=== PATIENT | male | born 1940 | race Two or more races ===

== ENCOUNTER 2024-08-24 01:23 | Emergency (ER) | payer MEDICARE, MEDICAID, SELFPAY ==
--- NOTE | 2024-08-24 01:58 | PD.EDRME ---
Rapid Medical Screening Exam RME Arrival date/time: 08/24/24 01:23 84 yo m present to ED for c/o of abd pain, nausea and vomiting I have greeted and performed a focused initial assessment of this patient. A comprehensive ED assessment and evaluation of the patient, analysis of all test results, and completion of the medical decision making process will be conducted by additional ED providers. Chief Complaint: Abdominal Pain Time Seen by Provider: 08/24/24 02:18 Vital signs: Vital Signs Temperature 98.2 F 08/24/24 02:01 Pulse Rate 73 08/24/24 02:01 Respiratory Rate 18 08/24/24 02:01 Blood Pressure 155/79 H 08/24/24 02:01 Pulse Oximetry (%) 95 08/24/24 02:01
--- NOTE | 2024-08-24 01:59 | XR_ITS ---
Examination: CT abdomen with intravenous contrast CT pelvis with intravenous contrast 2-D coronal reconstructions 2-D sagittal reconstructions Date and time of exam:August 24, 2024 0442 hrs. Indications: Abdominal pain and swelling nausea vomiting beginning today. CTDI: vol (mGy) 8.04 DLP: (mGycm) 451 Technique: Multiple axial sections of the abdomen and pelvis have been obtained. 64 slice high-resolution scanner used. 3 mm axial sections have been obtained, post intravenous injection 60 cc Isovue-370 2-D sagittal, coronal reconstructions obtained. Low dose protocols were performed. One or more of the following dose reduction techniques were used; automated exposure control, adjustment of the mA and/or KV according to patient size, use of iterative reconstruction technique. Findings: Liver is mildly irregular in contour Suspicious for tiny gallstones Spleen is not enlarged No pancreatic mass No adrenal mass Moderate bilateral renal parenchymal scar formation Abdominal aortic calcification millimeters dilatation Moderate stool throughout the colon No obstruction No diverticulitis Urinary bladder wall minimal thickening Normal appendix Advanced disc narrowing L4-L5 with grade 2 anterolisthesis Impression: Suspicious for primary hepatocellular disease Recommend gallbladder sonography to confirm small gallstones Moderate bilateral renal parenchymal scar formation Normal appendix No bowel obstruction or diverticulitis
--- NOTE | 2024-08-24 02:00 | EKG_ITS ---
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: : 1940 Requested By: Vinicius Campoverde Order Number: [id number] Reading MD: Vinicius Campoverde Measurements Intervals Lutz Rate: 74 P: 53 AL: 235 QRS: -34 QRSD: 146 T: 50 QT: 448 QTc: 500 Interpretive Statements SINUS RHYTHM WITH FIRST DEGREE AV BLOCK LEFT AXIS DEVIATION [QRS AXIS < -30] RIGHT BUNDLE BRANCH BLOCK [120+ ms QRS DURATION, UPRIGHT V1, 40+ ms S IN I/aVL/V4/V5/V6] Compared to ECG 03/31/2024 12:19:52 Left-axis deviation now present Right bundle-branch block now present Sinus bradycardia no longer present Incomplete right bundle-branch block no longer present /store/S0/[id number]/ecg/[id number].pdf
[2024-08-24 02:01] VITALS: BP 155/79; PULSE 73; RESP 18; TEMP 36.8; O2SAT 95
--- NOTE | 2024-08-24 02:14 | PD.EDABDPN ---
ED Abdominal Pain RME/HPI General Chief Complaint: Abdominal Pain Stated complaint: ABDOMINAL PAIN Time seen by provider: 08/24/24 02:18 Arrival date/time: 08/24/24 01:23 Limitations: no limitations RME / HPI RME / HPI narrative: 08/24/24 01:23 84 yo m present to ED for c/o of abd pain, nausea and vomiting I have greeted and performed a focused initial assessment of this patient. A comprehensive ED assessment and evaluation of the patient, analysis of all test results, and completion of the medical decision making process will be conducted by additional ED providers. Dr. Leigh's Main ED Evaluation: 84yo male presents to the ED for a chief complaint of burning epigastric discomfort x 3-4 hours. No radiation or migration. Patient reports associated nausea and dizziness. Patient denies any fever, chills, vomiting, diarrhea, back pain, UTI symptoms or any other associated symptoms. Related Data Home Medications ?Medication ?Instructions ?Recorded ?Confirmed allopurinol 300 mg tablet 300 mg PO QDAY 08/13/23 08/13/23 ferrous sulfate 325 mg (65 mg 325 mg PO QDAY 08/13/23 08/13/23 iron) tablet (FeroSul) finerenone 10 mg tablet (Kerendia) 10 mg PO QDAY 08/13/23 08/13/23 insulin glargine 100 30 unit subcut QDAY 08/13/23 08/13/23 unit-lixisenatide 33 mcg/mL subcutaneous pen (Soliqua 100/33) lactulose 10 gram/15 mL oral 15 ml PO QDAY 08/13/23 08/13/23 solution (Enulose) omeprazole 40 mg capsule,delayed 40 mg PO QDAY 08/13/23 08/13/23 release Allergies Allergy/AdvReac Type Severity Reaction Status Date / Time No Known Allergies Allergy Verified 08/13/23 11:17 Review of Systems Review of Systems Systems Reviewed: All systems reviewed, normal except as documented Past Medical History Past Medical History NEUROLOGIC: Negative Neurological Disorders or Seizures CARDIAC: Positive Cardiac Disorders; Negative Congestive Heart Failure or Hypertension RESPIRATORY: Negative Chronic Obstructive Pulmonary Disease (COPD) or Asthma GASTROINTESTINAL: Positive Gastrointestinal Disorders and Gastrointestinal Bleed; Negative Hepatitis GENITOURINARY: Negative Genitourinary Disorders or Renal Disease MUSCULOSKELETAL: Positive Musculoskeletal Disorders (uses cane to walk) and Osteomyelitis (back) ENT: Positive Deafness ENDOCRINE: Positive Endocrine Disorders and Diabetes Mellitus Type 2; Negative Diabetes Mellitus Type 1 HEMATOLOGIC: Negative Blood Disorders or Sickle Cell Disease OTHER HISTORY: Negative Autoimmune Disease, Blood Transfusions, Blood Transfusion Reaction, Anesthesia Reactions, MRSA, Human Immunodeficiency Virus (HIV), Chicken Pox, Measles, Mumps, Rubella (Finnish Measles), Pertussis, Clostridium Difficile or Cancer Family History FAMILY HISTORY: Negative Family Cardiac Disorders Surgical History SURGICAL: Positive Angiogram Social History SMOKING STATUS: Never smoker ED Exam General Limitations: Present no limitations General appearance: Present alert and in no apparent distress Head Head exam: Present atraumatic Eye Eye exam: Present normal appearance, PERRL and EOMI ENT ENT exam: Present normal exam, normal oropharynx and mucous membranes moist Neck Neck exam: Present normal inspection, full ROM and trachea midline Chest Chest inspection: Present normal inspection and symmetric chest wall rise Respiratory Respiratory exam: Present normal lung sounds bilaterally Cardiovascular Cardiovascular exam: Present regular rate, normal rhythm and normal heart sounds Abdominal Exam Abdominal exam: Present soft and normal bowel sounds Extremities Exam Extremities exam: Present normal inspection and full ROM Back Exam Back exam: Present normal inspection and full ROM Neurological Exam Neurological exam: Present alert, oriented X3 and CN II-XII intact Psychiatric Psychiatric exam: Present normal affect and normal mood Skin Skin exam: Present warm, dry, intact and normal color Course Course Course Narrative: CXR is ordered for determining the etiology of epigastric pain. Quality Measures none Orders Category Date Time Status CT Screening NOW Care 08/24/24 01:59 Active EKG (ED ONLY) *Do not use* NOW Care 08/24/24 02:[address] abdomen pelvis w con Stat Exams 08/24/24 01:59 Ordered CXRP [XR chest 1V portable] Stat Exams 08/24/24 05:03 Taken EKG (ED Only) Stat Exams 08/24/24 02:00 Draft BNP [B-Type Natriuretic Peptide] Stat Lab 08/24/24 02:27 Completed CBC Stat Lab 08/24/24 02:27 Completed CMP [Comprehensive Metabolic Panel] Stat Lab 08/24/24 02:27 Completed Lipase Stat Lab 08/24/24 02:27 Completed Troponin I Stat Lab 08/24/24 02:27 Completed Troponin I Stat Lab 08/24/24 05:32 Ordered UA [Urinalysis] Stat Lab 08/24/24 03:15 Completed Sodium Chloride 0.9% 500 ml [Ns] 500 ml Med 08/24/24 05:03 Discontinued IV 999 mls/hr Reevaluation(s) Reevaluation #1: Patient's heart rate is 73. He is completely pain free. Patient is pending CT abdomen pelvis and CXR at this time. Time: 05:29 Vital Signs Vital signs: Vital Signs Temperature 98.2 F 08/24/24 02:01 Pulse Rate 73 08/24/24 02:01 Respiratory Rate 18 08/24/24 02:01 Blood Pressure 155/79 H 08/24/24 02:01 Pulse Oximetry (%) 95 08/24/24 02:01 Abdominal Pain MDM Patient data External records reviewed:: [facility] previous records (Per chart review, patient was seen here on 09/05/22 for acute dehydration.) Clinical information provided by:: patient Social determinants that could affect healthcare access:: none Patient has the following chronic illnesses:: DM How is presenting disease/condition affected by chronic disease/condition?: uneffected by Evaluation data The following diagnostics were reviewed and interpreted by me:: lab results, radiology exam(s) (CT pending at signout.) and EKG tracing(s) Lab and/or radiology exams considered but not ordered:: none Interpretation Summary: WBC count is 10.7, Glucose is 182, Initial troponin is normal, BNP is normal, Lipase is normal, according to my interpretation. EKG done at 0209, NSR, rate of 74, first degree AV block, RBBB, similar to previous EKG done in 03/2024, no STEMI, QTc: 500, according to my interpretation. Medications / Prescriptions Medications or Prescriptions considered but not ordered:: none Medication administrations:: Medication Administration History Discontinued Medications Sodium Chloride (Ns) 500 mls @ 999 mls/hr IV .Q31M ONE Stop: 08/24/24 05:33 Last Admin: 08/24/24 05:05 Dose: 999 mls/hr Documented By: JADE see above Consultations Consultation(s) initiated? (list below): No Diagnosis Differential diagnosis abdominal pain: constipation, pancreatitis and other (NSTEMI, gallstones, other biliary abnormalities, ileus, exacerbation of DM) Most likely diagnosis given after review of the tests above:: final dx pending at signout. Admission Indicated Admission indicated?: not indicated Admission Request Was there a request for admission?: No Disposition Plan Disposition Plan: other (specify) (Signed out to Dr. Stack pending CT abdomen pelvis, CXR, and repeat troponin.) Discharge Plan Prescriptions/Referrals Prescriptions/Med Rec: No Action omeprazole 40 mg Capsule,Delayed Release(Dr/Ec) 40 mg PO QDAY ferrous sulfate [FeroSul] 325 mg (65 mg iron) Tablet 325 mg PO QDAY allopurinol 300 mg Tablet 300 mg PO QDAY lactulose [Enulose] 10 gram/15 mL Solution 15 ml PO QDAY Soliqua 100/33 100 unit-33 mcg/mL insulin pen 30 unit SUBCUT QDAY Kerendia 10 mg Tablet 10 mg PO QDAY Referrals: No Primary/Family,Physician [Primary Care Provider] - In 1 week Problem List Clinical Impression: Abdominal pain, epigastric Patient/Caregiver Discharge Instructions Print Language: Uruguayan
[2024-08-24 02:39] LABS: Basophils % (Auto) 0 % (0-2.5); Eosinophils # (Auto) 0.1 Thou/mm3 (0.0-0.5); Eosinophils % (Auto) 1 % (0-10); Hematocrit 45.4 % (41.0-53.0); Hemoglobin 16.1 g/dL (13.5-16.0); Immature Granulocytes % (Auto) 0 % (0-0); Immature Granulocytes Auto 0.04 Thou/mm3 (0.00-0.00); Lymphocytes # (Auto) 2.1 Thou/mm3 (1.0-4.8); Lymphocytes % (Auto) 20 % (10-50); Mean Corpuscular HGB Conc 35.5 g/dl (31.0-37.0); Mean Corpuscular Hemoglobin 31.4 pg (25.0-35.0); Mean Corpuscular Volume 89 fL (80-100); Monocytes # (Auto) 0.6 Thou/mm3 (0.0-0.8); Monocytes % (Auto) 6 % (0-12); Neutrophils # (Auto) 7.7 Thou/mm3 (1.8-7.7); Neutrophils % (Auto) 72 % (37-80); Nucleated Red Blood Cell % 0 /100 WBC (0); Platelet Count 203 Thou/mm3 (140-440); RDW Standard Deviation 42.4 fL (35.1-43.9); Red Blood Count 5.13 Miln/mm3 (4.50-5.90); White Blood Count 10.7 Thou/mm3 (3.8-10.6)
[2024-08-24 03:03] LABS: B-Type Natriuretic Peptide 35 pg/mL (0-100)
[2024-08-24 03:04] LABS: Alanine Aminotransferase 16 U/L (10-49); Albumin, Serum 4.4 gm/dL (3.4-4.8); Albumin/Globulin Ratio 1.4 (1.2-2.2); Alkaline Phosphatase 156 U/L (46-116); Anion Gap 8 (7-16); Aspartate Amino Transferase 22 U/L (0-34); BUN/Creatinine Ratio 18 Ratio (12-20); Bilirubin,Total 0.7 mg/dL (0.3-1.2); Blood Urea Nitrogen 16 mg/dL (9-23); Carbon Dioxide 29.8 mMol/L (20.0-31.0); Chloride 102 mMol/L (98-107); Creatinine (Component) 0.9 mg/dL (0.6-1.3); Globulin 3.2 gm/dL (2.3-3.5); Glucose 182 mg/dL (74-106); Lipase 41 U/L (12-53); Osmolality,Calculated 285 (275-295); Potassium 4.9 mMol/L (3.4-5.1); Sodium 140 mMol/L (136-145); Total Protein 7.6 gm/dL (5.7-8.2); Troponin I 0.041 ng/mL (0.0-0.045); eGFR > 60 See Note
[2024-08-24 03:33] LABS: Collection Type, Urine Voided
[2024-08-24 03:35] LABS: Bilirubin,Urine Negative (Negative); Blood,Urine Negative (Negative); Clarity,Urine Clear (Clear/Hazy); Color,Urine Yellow (Lt Yel-Yel); Glucose, Urine Trace (Negative); Ketones,Urine Negative (Negative); Leukocyte Esterase,Urine Negative (Negative); Nitrite,Urine Negative (Negative); PH,Urine 7.5 (5.0-7.0); Protein,Urine 1+ (Neg - Trace); RBC,Urine 4 /hpf (0-3); Specific Gravity,Urine 1.024 (1.001-1.035); Squamous Epithelial Cell,Urine 1 /hpf (0-5); WBC,Urine 1 /hpf (0-5)
[2024-08-24 04:34] VITALS: BP 169/89; PULSE 72; RESP 18; TEMP 36.8; O2SAT 97
[2024-08-24 04:47] VITALS: BMI 28.6
[2024-08-24 04:58] VITALS: BP 144/91; PULSE 130; RESP 16; O2SAT 95
--- NOTE | 2024-08-24 05:03 | XR_ITS ---
Examination: AP chest single view Technique one AP portable upright chest single view Exam date and time: August 24, 2024 at 0427 hrs. Indications: Onset chest pain today Findings: Mild enlargement left ventricle No lobar pneumonia or pulmonary edema Intact osseous structures Impression: No pneumonia or pulmonary edema
[2024-08-24] MEDS: SODIUM CHLORIDE 0.9% 500 ML 500 ML 999 ML IV (05:05)
[2024-08-24 06:00] VITALS: BP 168/71; PULSE 62; RESP 16; TEMP 36.7; O2SAT 96
[2024-08-24 06:27] LABS: Troponin I 0.027 ng/mL (0.0-0.045)
--- NOTE | 2024-08-24 07:40 | PC.NURSE ---
Pt GCS 15, reports he is feeling better, provided warm blanket. Denies any pain or discomfort at this time, will continue w/POC.
--- NOTE | 2024-08-24 07:59 | PD.EDADDENDU ---
Emergency Room Addendum <Nasra Whyte - Last Filed: 08/24/24 08:26> Addendum Narrative: 0600: Care assumed from , the previous shift emergency physician. Past medical, surgical, social and family history reviewed. Vitals and home medications reviewed. I will assume the care of the patient at this time, pending CT abdomen/pelvis and repeat troponin. Please refer to the emergency department record for history and examination from initial visit.? 0820: Patient states his pain has improved this morning. Pain initially was located all throughout abdomen described as feeling tight and making it hard for him to breathe. RADIOLOGY Ordering Physician: Vinicius Chopra PA-C Date of Service: 08/24/24 Procedure(s): CT abdomen pelvis w con Accession Number(s): [id number] cc: Parth Oneill MD; NO PRIMARY/FAMILY,PHYSICIAN; Vinicius Chopra PA-C~ Examination: CT abdomen with intravenous contrast CT pelvis with intravenous contrast 2-D coronal reconstructions 2-D sagittal reconstructions Date and time of exam:August 24, 2024 0442 hrs. Indications: Abdominal pain and swelling nausea vomiting beginning today. CTDI: vol (mGy) 8.04 DLP: (mGycm) 451 Technique: Multiple axial sections of the abdomen and pelvis have been obtained. 64 slice high-resolution scanner used. 3 mm axial sections have been obtained, post intravenous injection 60 cc Isovue-370 2-D sagittal, coronal reconstructions obtained. Low dose protocols were performed. One or more of the following dose reduction techniques were used; automated exposure control, adjustment of the mA and/or KV according to patient size, use of iterative reconstruction technique. Findings: Liver is mildly irregular in contour Suspicious for tiny gallstones Spleen is not enlarged No pancreatic mass No adrenal mass Moderate bilateral renal parenchymal scar formation Abdominal aortic calcification millimeters dilatation Moderate stool throughout the colon No obstruction No diverticulitis Urinary bladder wall minimal thickening Normal appendix Advanced disc narrowing L4-L5 with grade 2 anterolisthesis Impression: Suspicious for primary hepatocellular disease Recommend gallbladder sonography to confirm small gallstones Moderate bilateral renal parenchymal scar formation Normal appendix No bowel obstruction or diverticulitis Dictated By: Parth Oneill MD Signed By: <Electronically signed by Parth Oneill MD in [place]> 08/24/24 0740 <Krunal Stack MD - Last Filed: 08/24/24 08:28> Addendum Narrative: 0600: Care assumed from , the previous shift emergency physician. Past medical, surgical, social and family history reviewed. Vitals and home medications reviewed. I will assume the care of the patient at this time, pending CT abdomen/pelvis and repeat troponin. Please refer to the emergency department record for history and examination from initial visit.? Patient was reevaluated 0815 hrs. and he is complaining of no abdominal pain at this time states is totally resolved. Reexamination of his abdomen shows it to be protuberant but nontender there is no pain there is no guarding. He is smiling states he is ready to go home. We discussed the CT result below which said he might have some small gallstones and lots of poop. We told him and his son that he may have recurring bouts of pain if his gallstones are the source of the pain that happened earlier and/or drink increased water and talk to About constipation as there was increased stool in the colon. Either way he is got a benign abdomen there is no surgical issue and the CT is essentially negative. He knows to return if he is getting worse. 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 0820: Patient states his pain has improved this morning. Pain initially was located all throughout abdomen described as feeling tight and making it hard for him to breathe. RADIOLOGY Ordering Physician: Vinicius Chopra PA-C Date of Service: 08/24/24 Procedure(s): CT abdomen pelvis w con Accession Number(s): [id number] cc: Parth Oneill MD; NO PRIMARY/FAMILY,PHYSICIAN; Vinicius Chopra PA-C~ Examination: CT abdomen with intravenous contrast CT pelvis with intravenous contrast 2-D coronal reconstructions 2-D sagittal reconstructions Date and time of exam:August 24, 2024 0442 hrs. Indications: Abdominal pain and swelling nausea vomiting beginning today. CTDI: vol (mGy) 8.04 DLP: (mGycm) 451 Technique: Multiple axial sections of the abdomen and pelvis have been obtained. 64 slice high-resolution scanner used. 3 mm axial sections have been obtained, post intravenous injection 60 cc Isovue-370 2-D sagittal, coronal reconstructions obtained. Low dose protocols were performed. One or more of the following dose reduction techniques were used; automated exposure control, adjustment of the mA and/or KV according to patient size, use of iterative reconstruction technique. Findings: Liver is mildly irregular in contour Suspicious for tiny gallstones Spleen is not enlarged No pancreatic mass No adrenal mass Moderate bilateral renal parenchymal scar formation Abdominal aortic calcification millimeters dilatation Moderate stool throughout the colon No obstruction No diverticulitis Urinary bladder wall minimal thickening Normal appendix Advanced disc narrowing L4-L5 with grade 2 anterolisthesis Impression: Suspicious for primary hepatocellular disease Recommend gallbladder sonography to confirm small gallstones Moderate bilateral renal parenchymal scar formation Normal appendix No bowel obstruction or diverticulitis Dictated By: Parth Oneill MD Signed By: <Electronically signed by Parth Oneill MD in [place]> 08/24/24 0740
[2024-08-24 08:47] VITALS: BP 152/77; PULSE 88; RESP 16; TEMP 36.7; O2SAT 99
== END 2024-08-24 08:47 | disposition home or self-care (01) ==
PROVIDERS: Emergency Medicine; Physician Assistant; Emergency Provider Emergency Medicine
DX: R10.13 Epigastric pain (principal)
CPT/HCPCS: 36415; 71045; 74177; 80053; 81001; 83690; 83880; 84484; 85025; 93005; 96360; 99285; A4649; J7040; Q9967

== ENCOUNTER → 2024-08-24 | Outpatient (CLI) | payer MEDICARE, MEDICAID, SELFPAY ==
--- NOTE | 2024-08-24 11:57 | XR_ITS ---
Examination: Abdomen sonogram, complete Date and time of exam: August 24, 2024 1255 hrs. Indications: Abdominal pain and distention nausea vomiting today. Technique: Multiple real-time grayscale transabdominal sonographic images of the abdomen have been obtained. Findings: No gallstones identified Gallbladder wall 0.3 cm no edema Common bile duct 0.4 cm Pancreatic head 3.0 cm Aorta not enlarged Liver 11.8 cm fatty infiltration no focal liver lesions Normal hepatopedal portal venous flow Patent IVC Right kidney 10.4 x 6.8 x 6.1 cm cortex 1.6 cm Left kidney 9.2 x 6.1 x 1.8 cm cortex 1.3 cm Moderate renal parenchymal scar formation Spleen 9.4 cm Impression: Normal gallbladder Moderate bilateral Indication
== END | disposition home or self-care (01) ==
PROVIDERS: PCP Family Medicine; Referring Provider Family Medicine; Visit Provider Family Medicine
DX: R10.9 Unspecified abdominal pain (principal)
CPT/HCPCS: 76700

== ENCOUNTER → 2024-08-28 | Outpatient (CLI) | payer MEDICARE, MEDICAID, SELFPAY ==
--- NOTE | 2024-08-28 07:00 | XR_ITS ---
Examination: MRI lumbar spine without contrast Date and time of exam: August 28, 2024 at 0658 hrs. Indications: Lower back pain radiating down both legs beginning 4 days ago, lumbar spine surgery 2019 Technique: Multiple MRI axial and sagittal sections lumbar spine. Sagittal T2-weighted images, TR 3500, TE 118 T1 weighted transverse sections, TR 688 T8.5, T2-weighted sagittal sections T1 weighted sagittal sections TR 621, TE 30 T2 axial sections, TR 4, 190, TE 84. Findings: Grade 2 anterolisthesis L4 on L5 with fusion this level. No vertebral body fracture Marrow signal vertebral bodies L5-S1 no disc protrusion L4-L5 grade 2 anterolisthesis produces moderate bilateral L4 ganglionic compression L3-L4 no disc protrusion L2-L3 no disc protrusion L1-L2 no disc protrusion Impression: Grade 2 anterolisthesis L4 on L5 produces moderate bilateral L4 ganglionic compression
== END | disposition home or self-care (01) ==
LOC: SMRI 06:37
PROVIDERS: Referring Provider Family Medicine; Visit Provider Family Medicine
DX: G95.20 Unspecified cord compression (principal)
CPT/HCPCS: 72148

== ENCOUNTER 2025-02-21 12:34 | Emergency (ER) | payer MEDICARE, MEDICAID, SELFPAY ==
[2025-02-21 12:54] VITALS: BP 106/63; PULSE 58; RESP 18; TEMP 37.1; O2SAT 95; BMI 26.2
--- NOTE | 2025-02-21 13:00 | XR_ITS ---
Examination: CT abdomen and pelvis without contrast. Coronal 3-D reconstructions. Sagittal 2-D reconstructions. Date and time of exam:February 21, 2025 1440 hours INDICATIONS: Lower abdominal pain with nausea beginning today COMPARISON: August 24, 2024 CTDI: vol (mGy): 7.09 DLP: (mGycm): 397 Technique: Axial images of the abdomen have been obtained, 3 mm slice thickness Intravenous contrast material has not been administered. Low dose protocols were performed. One or more of the following dose reduction techniques were used; automated exposure control, adjustment of the mA and/or KV according to patient size, use of iterative reconstruction technique. Findings: Mild enlargement cardiac contour Liver irregular in contour No gallstones Spleen not enlarged No pancreatic or adrenal mass No renal or ureteral calculi, no hydronephrosis No bowel obstruction Normal appendix No diverticulitis Normal seminal vesicles Transverse prostate dimension 3.5 cm Minimal urinary bladder wall thickening Severe osteopenia, grade 2 anterolisthesis L4 on L5 with advanced degenerative disc disease at this level IMPRESSION: Primary hepatocellular disease No renal or ureteral calculi, no hydronephrosis Normal appendix No bowel obstruction diverticulitis or free air
--- NOTE | 2025-02-21 13:00 | PD.EDRME ---
Rapid Medical Screening Exam RME Arrival date/time: 02/21/25 12:34 84-year-old male with no known medical history presents to the emergency room with a chief complaint of abdominal pain, and abdominal distention x 2 days I have greeted and performed a focused initial assessment of this patient. A comprehensive ED assessment and evaluation of the patient, analysis of all test results, and completion of the medical decision making process will be conducted by additional ED providers. Chief Complaint: Abdominal Pain Vital signs: Vital Signs Temperature 98.8 F 02/21/25 12:54 Pulse Rate 58 L 02/21/25 12:54 Respiratory Rate 18 02/21/25 12:54 Blood Pressure 106/63 02/21/25 12:54 Pulse Oximetry (%) 95 02/21/25 12:54 Oxygen Delivery Method Room Air 02/21/25 12:54 Vital signs reviewed by provider: Yes
[2025-02-21 13:20] LABS: Basophils # (Auto) 0.0 Thou/mm3 (0.0-0.2); Basophils % (Auto) 0 % (0-2.5); Eosinophils # (Auto) 0.2 Thou/mm3 (0.0-0.5); Eosinophils % (Auto) 3 % (0-10); Hematocrit 44.2 % (41.0-53.0); Hemoglobin 15.3 g/dL (13.5-16.0); Immature Granulocytes Auto 0.02 Thou/mm3 (0.00-0.00); Lymphocytes # (Auto) 2.2 Thou/mm3 (1.0-4.8); Lymphocytes % (Auto) 25 % (10-50); Mean Corpuscular HGB Conc 34.6 g/dl (31.0-37.0); Mean Corpuscular Hemoglobin 31.6 pg (25.0-35.0); Mean Corpuscular Volume 91 fL (80-100); Monocytes # (Auto) 0.6 Thou/mm3 (0.0-0.8); Monocytes % (Auto) 7 % (0-12); Neutrophils # (Auto) 5.9 Thou/mm3 (1.8-7.7); Neutrophils % (Auto) 65 % (37-80); Nucleated Red Blood Cell # 0.00 Thou/mm3 (0.00-0.00); Nucleated Red Blood Cell % 0 /100 WBC (0); Platelet Count 167 Thou/mm3 (140-440); RDW Standard Deviation 41.0 fL (35.1-43.9); Red Blood Count 4.84 Miln/mm3 (4.50-5.90); White Blood Count 9.0 Thou/mm3 (3.8-10.6)
[2025-02-21 13:32] LABS: Collection Type, Urine Clean Catch
[2025-02-21 13:39] LABS: Alanine Aminotransferase 13 U/L (10-49); Albumin, Serum 4.0 gm/dL (3.4-4.8); Albumin/Globulin Ratio 1.5 (1.2-2.2); Alkaline Phosphatase 139 U/L (46-116); Anion Gap 11 (7-16); Aspartate Amino Transferase 24 U/L (0-34); BUN/Creatinine Ratio 12 Ratio (12-20); Bilirubin,Total 0.8 mg/dL (0.3-1.2); Blood Urea Nitrogen 14 mg/dL (9-23); Calcium 9.4 mg/dL (8.3-10.6); Calcium (Corrected) 9.4 mg/dL (8.5-10.1); Carbon Dioxide 23.3 mMol/L (20.0-31.0); Chloride 104 mMol/L (98-107); Creatinine (Component) 1.2 mg/dL (0.6-1.3); Estimated Creatinine Clearance 41.4 mL/min (>60); Globulin 2.7 gm/dL (2.3-3.5); Glucose 211 mg/dL (74-106); Lipase 41 U/L (12-53); Osmolality,Calculated 282 (275-295); Potassium 5.1 mMol/L (3.4-5.1); Sodium 138 mMol/L (136-145); Total Protein 6.7 gm/dL (5.7-8.2); eGFR 60 See Note
[2025-02-21 13:43] LABS: Bilirubin,Urine Negative (Negative); Blood,Urine Negative (Negative); Clarity,Urine Clear (Clear/Hazy); Color,Urine Yellow (Lt Yel-Yel); Glucose, Urine Negative (Negative); Ketones,Urine Negative (Negative); Leukocyte Esterase,Urine Negative (Negative); Nitrite,Urine Negative (Negative); PH,Urine 6.0 (5.0-7.0); Protein,Urine Negative (Neg - Trace); RBC,Urine 3 /hpf (0-3); Specific Gravity,Urine 1.016 (1.001-1.035); Squamous Epithelial Cell,Urine 2 /hpf (0-5); Urobilinogen,Urine Negative mg/dL (0.0-1.0); WBC,Urine 1 /hpf (0-5)
--- NOTE | 2025-02-21 14:10 | PD.EDADULT ---
ED General RME/HPI General Chief complaint: Abdominal Pain Stated complaint: ABD PAIN Time Seen by Provider: 02/21/25 13:01 Arrival date/time: 02/21/25 12:34 CC: Abdominal pain HPI onset at 3:00 this morning, with nausea no vomiting or diarrhea. Family member state he has a history of constipation patient denies any chest pain shortness of breath fever chills. RME / HPI RME / HPI narrative: 02/21/25 12:34 84-year-old male with no known medical history presents to the emergency room with a chief complaint of abdominal pain, and abdominal distention x 2 days I have greeted and performed a focused initial assessment of this patient. A comprehensive ED assessment and evaluation of the patient, analysis of all test results, and completion of the medical decision making process will be conducted by additional ED providers. Related Data Home Medications ?Medication ?Instructions ?Recorded ?Confirmed allopurinol 300 mg tablet 300 mg PO QDAY 08/13/23 08/13/23 ferrous sulfate 325 mg (65 mg 325 mg PO QDAY 08/13/23 08/13/23 iron) tablet (FeroSul) finerenone 10 mg tablet (Kerendia) 10 mg PO QDAY 08/13/23 08/13/23 insulin glargine 100 30 unit subcut QDAY 08/13/23 08/13/23 unit-lixisenatide 33 mcg/mL subcutaneous pen (Soliqua 100/33) lactulose 10 gram/15 mL oral 15 ml PO QDAY 08/13/23 08/13/23 solution (Enulose) omeprazole 40 mg capsule,delayed 40 mg PO QDAY 08/13/23 08/13/23 release Previous Rx's ?Medication ?Instructions ?Recorded dicyclomine 20 mg tablet 20 mg PO BID #14 tabs 02/21/25 Allergies Allergy/AdvReac Type Severity Reaction Status Date / Time No Known Allergies Allergy Verified 02/21/25 12:41 Review of Systems Review of Systems Narrative Review of Systems: GEN: No fever, no chills, no weight loss EYES: No discharge, no visual changes, no pain HEENT: No ear pain, no congestion, no sore throat PULM: No shortness of breath, no cough, no congestion CV: No chest pain, no dyspnea on exertion, no palpitations GI: No nausea, no vomiting, no diarrhea, + pain, no constipation : No frequency, no urgency, no dysuria MUSC/SKEL: No joint pain, no back pain SKIN: No rash PSYCH: No hallucinations, no depression HEME/LYMPH: No easy bleeding or bruising tendencies NEURO: No weakness, no headache Past Medical History Past Medical History NEUROLOGIC: Negative Neurological Disorders or Seizures CARDIAC: Negative Cardiac Disorders, Congestive Heart Failure or Hypertension RESPIRATORY: Negative Chronic Obstructive Pulmonary Disease (COPD) or Asthma GASTROINTESTINAL: Positive Gastrointestinal Disorders and Gastrointestinal Bleed; Negative Hepatitis GENITOURINARY: Negative Genitourinary Disorders or Renal Disease MUSCULOSKELETAL: Positive Musculoskeletal Disorders and Osteomyelitis ENT: Positive Deafness ENDOCRINE: Positive Endocrine Disorders; Negative Diabetes Mellitus Type 1 or Diabetes Mellitus Type 2 HEMATOLOGIC: Negative Blood Disorders or Sickle Cell Disease OTHER HISTORY: Negative Autoimmune Disease, Blood Transfusions, Blood Transfusion Reaction, Anesthesia Reactions, MRSA, Human Immunodeficiency Virus (HIV), Chicken Pox, Measles, Mumps, Rubella (Nepalese Measles), Pertussis, Clostridium Difficile or Cancer Family History FAMILY HISTORY: Negative Family Cardiac Disorders Surgical History SURGICAL: Positive Angiogram Social History SMOKING STATUS: Never smoker ED Exam Narrative Physical exam: [General: Not in any acute distress Head normocephalic HEENT: Within acceptable limits Neck is supple nontender Chest equal chest rise nontender to palpation Respiratory: Clear to auscultation no wheezes crackles or rubs CV: Rate rhythm is regular no murmurs rubs or clicks Abdomen is distended secondary to body habitus soft nontender no masses positive bowel sounds all 4 quadrants Back: No CVA tenderness no spinous process tenderness from cervical spine thoracic and lumbar spine Skin: Intact no petechiae rash induration ulceration or crepitus Extremities: Moving all extremity against resistance cap refill less than 2 seconds neurosensory intact Neuro: Awake alert oriented x3 Glascow coma 15 no focal deficits] Course Quality Measures none Orders Category Date Time Status CT abdomen pelvis wo con Stat Exams 02/21/25 13:00 Completed CBC Stat Lab 02/21/25 13:15 Completed CMP [Comprehensive Metabolic Panel] Stat Lab 02/21/25 13:15 Completed Lipase Stat Lab 02/21/25 13:15 Completed UA [Urinalysis] Stat Lab 02/21/25 13:20 Completed Urine Culture Stat Lab 02/21/25 13:20 Received Vital Signs Vital signs: Vital Signs Temperature 98.8 F 02/21/25 12:54 Pulse Rate 58 L 02/21/25 12:54 Respiratory Rate 18 02/21/25 12:54 Blood Pressure 106/63 02/21/25 12:54 Pulse Oximetry (%) 95 02/21/25 12:54 Oxygen Delivery Method Room Air 02/21/25 12:54 Discharge Plan Plan Patient Disposition: HOME (Self Care) Patient condition on transfer: Stable Prescriptions/Referrals Prescriptions/Med Rec: New dicyclomine 20 mg tablet 20 mg PO BID Qty: 14 0RF No Action omeprazole 40 mg Capsule,Delayed Release(Dr/Ec) 40 mg PO QDAY ferrous sulfate [FeroSul] 325 mg (65 mg iron) Tablet 325 mg PO QDAY allopurinol 300 mg Tablet 300 mg PO QDAY lactulose [Enulose] 10 gram/15 mL Solution 15 ml PO QDAY Soliqua 100/33 100 unit-33 mcg/mL insulin pen 30 unit SUBCUT QDAY Kerendia 10 mg Tablet 10 mg PO QDAY Referrals: Luis Enrique Miller MD [Primary Care Provider, Family Practice] - In 1 week Problem List Clinical Impression: Abdominal pain Patient/Caregiver Discharge Instructions Education Materials: Abdominal Pain Print Language: Mongolian Stand Alone Forms: Johanna Award Info., Patient Portal Info Letter, Work/School Release PA/PASSENGER BARGE MASTER Supervising Physician PA/PASSENGER BARGE MASTER Supervising Physician: Phong Malin ENP [facility] Clinical Information Provided by patient and family Medical Records Reviewed [facility] Meds/Rx Considered, not Ordered None Labs/Rad/Tests considered, not Ordered None Lab Interpretation Lab(s) interpretation(s): CBC shows no acute leukocytosis anemia thrombocytopenia CMP shows no significant electrolyte imbalances other than a glucose of 211 no transaminitis or T. bili elevation. Urine is negative for urinary tract infection. Imaging Provider imaging interpretation(s): CT abdomen pelvis is interpreted by me read by radiology as negative for any acute finding.
[2025-02-21 14:59] VITALS: BP 162/86; PULSE 51; RESP 15; TEMP 36.5; O2SAT 99
--- NOTE | 2025-02-21 15:08 | PC.NURSE ---
MAGI ESTES MASH PREPARATORY OPERATOR MADE AWARE PT'S HR 51 AT THIS TIME; PT ASYMPTOMATIC. NO NEW ORDERS RECEIVED AT THIS TIME.
== END 2025-02-21 15:35 | disposition home or self-care (01) ==
PROVIDERS: Nurse Practitioner Family; Emergency Provider Emergency Medicine; PCP Family Medicine
DX: R10.30 Lower abdominal pain, unspecified (principal)
CPT/HCPCS: 36415; 74176; 80053; 81001; 83690; 85025; 87077; 87086; 87186; 99283